=== PATIENT | male | born 1950 | race Caucasian/White ===

== ENCOUNTER → 2019-05-14 | Outpatient (CLI) | payer MEDICARE ==
[2019-05-14 13:43] LABS: BASOPHILS % (AUTO) 0.8 % (0.0-5.0); EOSINOPHILS % (AUTO) 2.8 % (0.0-8.0); HEMATOCRIT 39.5 % (42-54); LYMPHOCYTES % (AUTO) 24.3 % (21.0-51.0); MEAN CORPUSCULAR HEMOGLOBIN 33.6 pg (27.0-33.0); MEAN CORPUSCULAR HGB CONC 34.6 g/dL (32.0-36.0); MEAN CORPUSCULAR VOLUME 97.1 fL (79-99); MONOCYTES % (AUTO) 10.5 % (3.0-13.0); NEUTROPHILS % (AUTO) 61.6 % (40.0-77.0); NUCLEATED RED BLOOD CELLS 0.1 % (0.0-0.19); PLATELET COUNT (AUTO) 197 K/uL (130-400); RED BLOOD CELL COUNT(AUTO) 4.07 MIL/uL (4.50-6.20); RED CELL DISTRIBUTION WIDTH 14.4 % (11.0-15.5); WHITE BLOOD COUNT (AUTO) 5.5 K/uL (4.8-10.8)
[2019-05-14 13:57] LABS: ALBUMIN 3.6 g/dL (3.5-5.0); BILIRUBIN,TOTAL 0.7 mg/dL (0.2-1.0); CREATININE 1.4 mg/dL (0.5-1.5); POTASSIUM 4.5 mmol/L (3.5-5.1)
== END | disposition home or self-care (01) ==
LOC: LAB 12:58
PROVIDERS: ATTEND Internal Medicine Gastroenterology
DX: R10.13 Epigastric pain (principal)
CPT/HCPCS: 36415; 80053; 82150; 83690; 85025

== ENCOUNTER → 2019-05-15 | Outpatient (CLI) | payer MEDICARE ==
[~2019-05-15] MED LIST: IOHEXOL-350 50ML VIAL IV ONE
== END | disposition home or self-care (01) ==
LOC: RAH 13:47
PROVIDERS: ATTEND Internal Medicine Cardiovascular Disease
DX: R91.1 Solitary pulmonary nodule (principal); I51.7 Cardiomegaly
CPT/HCPCS: 71270; Q9967

== ENCOUNTER → 2019-06-08 | Outpatient (CLI) | payer MEDICARE ==
[~2019-06-08] MED LIST changes: +ASPI-1005 PO; +ATOR40TA69 PO; -IOHEXOL-350 50ML VIAL IV ONE; +TICA90TA PO
== END | disposition home or self-care (01) ==
LOC: SHCH 15:47 → EDUNIT# 16:00
PROVIDERS: ATTEND Internal Medicine Cardiovascular Disease
DX: I34.0 Nonrheumatic mitral (valve) insufficiency (principal); R91.1 Solitary pulmonary nodule
CPT/HCPCS: 93306

== ENCOUNTER → 2019-09-18 | Outpatient (CLI) | payer MEDICARE | END | disposition home or self-care (01) | LOC: RAH 11:06 | PROVIDERS: ATTEND Internal Medicine Nephrology | DX: E04.2 Nontoxic multinodular goiter (principal) | CPT/HCPCS: 76536 ==

== ENCOUNTER → 2020-08-15 | Outpatient (CLI) | payer MEDICARE ==
[~2020-08-15] MED LIST changes: +REGADENOSON 0.4 MG/5 ML PF SYG IVP SCH
== END | disposition home or self-care (01) ==
LOC: SHCH 08:04
PROVIDERS: ATTEND Internal Medicine Cardiovascular Disease
DX: I25.119 Atherosclerotic heart disease of native coronary artery with unspecified angina pectoris (principal)
CPT/HCPCS: 78452; 93017; 96374; A9500 ×2; J2785

== ENCOUNTER 2020-09-13 05:49 | Observation (INO) | payer MEDICARE ==
[2020-09-09 09:45] LABS: BASOPHILS % (AUTO) 1.1 % (0.0-5.0); HEMATOCRIT 42.9 % (42-54); LYMPHOCYTES % (AUTO) 25.8 % (21.0-51.0); MEAN CORPUSCULAR HEMOGLOBIN 29.1 pg (27.0-33.0); MEAN CORPUSCULAR HGB CONC 33.6 g/dL (32.0-36.0); MEAN CORPUSCULAR VOLUME 86.8 fL (79-99); MONOCYTES % (AUTO) 9.4 % (3.0-13.0); NEUTROPHILS % (AUTO) 59.4 % (40.0-77.0); PLATELET COUNT (AUTO) 233 K/uL (130-400); RED BLOOD CELL COUNT(AUTO) 4.94 MIL/uL (4.50-6.20); RED CELL DISTRIBUTION WIDTH 13.2 % (11.0-15.5); WHITE BLOOD COUNT (AUTO) 6.3 K/uL (4.8-10.8)
[2020-09-09 09:56] LABS: APPEARANCE,URINE Clear (CLEAR); BILIRUBIN,URINE Negative (NEGATIVE); COLOR,URINE Yellow (YELLOW); GLUCOSE, URINE (UA) Negative (NEGATIVE); KETONES,URINE Negative (NEGATIVE); LEUKOCYTE ESTERASE ,URINE Negative (NEGATIVE); NITRATE,URINE Negative (NEGATIVE); OCCULT BLOOD,URINE Negative (NEGATIVE); PH,URINE 5.5 (5.0-8.0); PROTEIN,URINE Negative (NEGATIVE)
[2020-09-09 09:57] LABS: CREATININE 1.3 mg/dL (0.5-1.5); POTASSIUM 4.6 mmol/L (3.5-5.1)
[2020-09-09 10:00] LABS: PROTHROMBIN TIME 10.9 SEC (9.6-11.6)
[2020-09-09 10:02] LABS: PARTIAL THROMBOPLASTIN TIME 27.2 SEC (26.3-35.5)
[2020-09-12 13:54] VITALS: BP 151/73
[2020-09-13] VITALS (30 sets, daily range): BP systolic 103–145; BP diastolic 47–97
[~2020-09-13] VITALS: Ht 182.9 cm; Wt 102.5 kg
[~2020-09-13 05:49] MED LIST changes: -REGADENOSON 0.4 MG/5 ML PF SYG IVP SCH; +SODIUM CHLORIDE 0.9% 500ML 500 ML IV SCH
[2020-09-13] MEDS ORDERED: SODIUM CHLORIDE 0.9% 1000ML 1,000 ML IV ONE (06:04)
[2020-09-13] MEDS ORDERED: TAMS-1 PO (06:38)
[2020-09-13] MEDS ORDERED: MULT-1203 PO (06:38)
[2020-09-13] MEDS ORDERED: LEVO112C4 PO (06:38)
[2020-09-13] MEDS ORDERED: AMLO-257 PO (06:38)
[2020-09-13] MEDS ORDERED: NITR0.4T SL (06:39)
[2020-09-13] MEDS ORDERED: HEPARIN SODIUM 1000UNIT/ML 10ML VIAL ONE (07:14)
[2020-09-13] MEDS ORDERED: IOHEXOL-350 50ML VIAL IV ONE (07:15)
[2020-09-13] MEDS ORDERED: IOHEXOL 350 MG/ML 100ML INFUS..BTL IV ONE (07:15)
[2020-09-13] MEDS ORDERED: LIDOCAINE HCL 2% 20ML ONE (07:15)
[2020-09-13] MEDS ORDERED: ASPIRIN 325MG EC TAB 325 MG TABLET.DR PO ONE (07:53)
[2020-09-13] MEDS ORDERED: CLOPIDOGREL BISULFATE 300 MG TAB ONE (07:53)
[2020-09-13] MEDS ORDERED: ONDANSETRON HCL 4 MG/2 ML VIAL IVP SCH (08:30)
[2020-09-13] MEDS ORDERED: MORPHINE SULFATE 4 MG/1ML SYG IVP SCH (08:30)
[2020-09-13] MEDS ORDERED: NITROGLYCERIN 0.4 MG SL TAB SL PRN (08:30)
[2020-09-13] MEDS ORDERED: NON-FORMULARY MEDICATION 1 EACH (Levothyroxine Sodium (Levothyroxine) 112 MCG) PO SCH (09:00)
[2020-09-13] MEDS ORDERED: ATROPINE SULFATE 0.1 MG/ML 10 ML SYG IVP ONE (11:57)
[2020-09-13] MEDS: AMLODIPINE BESYLATE 5 MG TAB PO SCH (16:50)
[2020-09-13] MEDS: ASPIRIN 81MG TAB.CHEW PO SCH (16:50)
[2020-09-13] MEDS: CLOPIDOGREL BISULFATE 75 MG TAB PO SCH (16:50)
[2020-09-13] MEDS ORDERED: MULTIVITAMIN TABLET PO SCH (21:00)
[2020-09-13] MEDS ORDERED: ATORVASTATIN CALCIUM 40 MG TABLET PO SCH (21:00)
[2020-09-13] MEDS ORDERED: TAMSULOSIN HCL 0.4 MG CAP.ER.24H PO SCH (21:00)
[2020-09-14 04:00] VITALS: BP 118/46
[2020-09-14] MEDS ORDERED: LEVOTHYROXINE 112 MCG TABLET PO SCH (06:30)
[2020-09-14 08:00] VITALS: BP 121/59
[2020-09-14] MEDS: CLOPIDOGREL BISULFATE 75 MG TAB PO SCH (08:48)
[2020-09-14] MEDS: ASPIRIN 81MG TAB.CHEW PO SCH (08:48)
[2020-09-14] MEDS: AMLODIPINE BESYLATE 5 MG TAB PO SCH (08:48)
[2020-09-14] MEDS ORDERED: PANTOPRAZOLE SODIUM 40 MG TABLET.DR PO SCH (10:00)
[2020-09-14 12:00] VITALS: BP 129/67
== END 2020-09-14 15:30 | disposition home or self-care (01) ==
LOC: DAH 05:49 → DAHIP 05:50 → 4DH 13:42
PROVIDERS: ADMIT Internal Medicine Pulmonary Disease; ATTEND Internal Medicine Pulmonary Disease
DX: I25.119 Atherosclerotic heart disease of native coronary artery with unspecified angina pectoris (principal); I10 Essential (primary) hypertension; E78.00 Pure hypercholesterolemia, unspecified; E03.9 Hypothyroidism, unspecified; F43.10 Post-traumatic stress disorder, unspecified; Z95.5 Presence of coronary angioplasty implant and graft; Z79.82 Long term (current) use of aspirin; Z79.02 Long term (current) use of antithrombotics/antiplatelets; Z79.899 Other long term (current) drug therapy
CPT/HCPCS: 36415 ×2; 71045; 80048; 81003; 85025; 85347; 85610; 85730 ×2; 93005; 93458; 96360; 96361 ×2; A4215; A4216; A4221; A4222; A4223 ×3; A4606; A4663; C1769; C1874; C1887; C1894; C9600; G0378 ×30; J1644 ×2; J3490; J7030; Q9965; Q9967 ×2; J0461; J2405

== ENCOUNTER → 2024-12-23 | Outpatient (CLI) | payer MEDICARE ==
[~2024-12-23] MED LIST changes: +AMLO-257 PO; +LEVO112C5 PO; +MULT-1203 PO; +NITR0.4T SL; -SODIUM CHLORIDE 0.9% 500ML 500 ML IV SCH; +TAMS-55 PO; -TICA90TA PO
[2024-12-23] MEDS: REGADENOSON 0.4 MG/5 ML PF SYG IVP ONE (12:28)
== END | disposition home or self-care (01) ==
LOC: SHCH 07:33
PROVIDERS: ATTEND Internal Medicine Cardiovascular Disease
DX: I25.10 Atherosclerotic heart disease of native coronary artery without angina pectoris (principal); R06.00 Dyspnea, unspecified
CPT/HCPCS: 78452; 93017; J2785; A9500 ×2